=== PATIENT | female | born 1980 | race Caucasian/White ===

== ENCOUNTER 2016-07-26 01:11 | Emergency (ER) | payer OTHER ==
[~2016-07-26] VITALS: Ht 172.7 cm; Wt 72.6 kg
[~2016-07-26 01:11] MED LIST: DOXEPIN HCL10 MG ORAL; LAMICTAL150 MG ORAL; LAMICTAL25 MG ORAL
[2016-07-26] MEDS ORDERED: Oxycodone/Acetaminophen 5-325 ORAL ONE (01:45)
[2016-07-26] MEDS ORDERED: TdaP Vaccine 0.5ml Syr IM ONE (01:45)
[2016-07-26] MEDS ORDERED: Morphine Sulfate 4mg/ml Inj IM ONE (01:45)
[2016-07-26] MEDS ORDERED: Lidocaine 1% 10mg/ml/Epi 0.005mg/ml 30ml vial INJ ONE ×2 (02:00→02:02)
--- NOTE | 2016-07-26 02:32 | Emergency Room Report ---
History of Present Illness General Chief Complaint: Laceration Source: Patient Present Illness HPI 36 YO F with lacerations to palmar aspect of left hand while cutting bagel at home after drinking wine. Denies decreased sensation or reduced ROM to fingers. Unknown last tetanus update. Bleeding controlled. No known bleeding disorders. Allergies: Coded Allergies: No Known Allergies (Unverified , 03/09/15) Patient History Past Medical History: none Past Surgical History: none Pertinent Family History: none Social History: Denies: alcohol use, drug use, smoking Last Menstrual Period: 06/24/16 Now: No : 1 Para: 0 Immunizations: UTD Reviewed Nursing Documentation: PMH: Agreed, PSxH: Agreed Nursing Documentation-PMH Hx Cardiac Problems: No Hx Cancer: No Hx Gastrointestinal Problems: Yes History Of Psychiatric Problem: Yes - Bipolar Hx Neurological Problems: No Review of Systems All Other Systems: negative except mentioned in HPI Physical Exam Vital Signs Date Time Temp Pulse Resp B/P Pulse Ox O2 Delivery O2 Flow Rate FiO2 07/26/16 01:05 98.4 108 15 127/82 97 Room Air Sp02 EP Interpretation: reviewed, normal General Appearance: normal inspection, well appearing, no apparent distress, alert Head: atraumatic ENT: normal ENT inspection, hearing grossly normal, normal voice Neck: normal inspection, full range of motion, supple, no bony tend Respiratory: normal inspection, lungs clear, normal breath sounds, no respiratory distress, no retraction, no wheezing Cardiovascular #1: regular rate, rhythm, no edema Gastrointestinal: normal inspection, normal bowel sounds, non tender, soft, no guarding, no hernia Musculoskeletal: other - Left hand: 2cm linear laceration to palmar aspect of distal phalanx of left index finger.; 1cm lac to distal aspect/palmar aspect of left pinky finger. Sensation intact. Able to extend/flex at PIP and DIP. 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, motor strength/tone normal, speech normal Psychiatric: normal inspection Skin: normal inspection, normal color, no rash Procedures Laceration/Wound Repair Laceration/Wound Repair : Consent: Verbal Wound Location: upper extremity Wound's Depth, Shape: superficial Wound Explored: clean Betadine Prep?: Yes Anesthesia: Lidocaine w/ Epi Wound Debrided: minimal Wound Repaired With: sutures Suture Size/Type: 5:0 Number of Sutures: 8 Layer Closure?: No Sterile Dressing Applied?: Yes Splint Applied?: No Sling Applied?: No Patient Tolerated: Well Complications: None Progress 3 sutures to distal palmar phalanx of left pinky finger 5 sutures to distal palmar phalanx of left index finger Medical Decision Making Diagnostic Impression: Primary Impression: Laceration ER Course Multipel lacerations to left hand s/p primary repair in ED . VSS. Afebrile. Unlikely tendon involvement given intact ROM. Tetanus updated. Advised return to ER in 7-10 days for suture removal DC home with lac repair info Last Vital Signs Date Time Temp Pulse Resp B/P Pulse Ox O2 Delivery O2 Flow Rate FiO2 07/26/16 01:05 98.4 108 15 127/82 97 Room Air Status: improved Disposition: HOME, SELF-CARE Referrals: NON PHYSICIAN (PCP) MICHELL MURRY M.D. Jul 26, 2016 02:32
[2016-07-26] MEDS ORDERED: Bacitracin Oint UD TOPIC ONE (02:40)
[2016-07-26] MEDS ORDERED: Polysporin Oint 30gm TOPIC SCH (02:45)
[2016-07-26 03:00] VITALS: BP 111/76
[2016-07-26] MEDS ORDERED: CEPHALEXIN500 MG ORAL ×2 (15:16→15:53)
[2016-07-26] MEDS ORDERED: IBUPROFEN400 MG ORAL ×2 (15:16→15:53)
== END 2016-07-26 03:00 | disposition home or self-care (01) ==
LOC: EDBD 01:11 → EMR 01:23
DX: S61.211A Laceration without foreign body of left index finger without damage to nail, initial encounter (principal); S61.217A Laceration without foreign body of left little finger without damage to nail, initial encounter; W26.0XXA Contact with knife, initial encounter; Y93.G1 Activity, food preparation and clean up; Y92.009 Unspecified place in unspecified non-institutional (private) residence as the place of occurrence of the external cause; Y99.9 Unspecified external cause status; F31.9 Bipolar disorder, unspecified; Z87.19 Personal history of other diseases of the digestive system
CPT/HCPCS: 12002; 90471; 90715; 99284; J2270

== ENCOUNTER 2016-07-26 14:46 | Emergency (ER) | payer OTHER, MEDICAID ==
[~2016-07-26] VITALS: Ht 172.7 cm; Wt 72.6 kg
[2016-07-26] MEDS ORDERED: CEPHALEXIN500 MG ORAL ×2 (15:16→15:53)
[2016-07-26] MEDS ORDERED: IBUPROFEN400 MG ORAL ×2 (15:16→15:53)
[2016-07-26 15:24] VITALS: BP 120/62
[2016-07-26 15:33] VITALS: BP 120/62
[2016-07-26] MEDS ORDERED: Bacitracin Oint UD TOPIC ONE ×2 (15:37→15:45)
--- NOTE | 2016-07-26 22:48 | Emergency Room Report ---
History of Present Illness General Chief Complaint: Wound Recheck/Suture Removal Source: Patient Present Illness HPI 36-year-old female presents emergency Department with 9/10 pain, swelling and erythema and a left index finger since last night. Patient states she accidentally cut her hand wall trying to slice a bagel last night the patient states she was evaluated this morning and had sutures placed however she continues to have pain, and progressive erythema. Patient denies discharge or crusting. Patient states that one of the sutures has popped accidentally. She denies nausea, vomiting, fevers, chills. Patient states mild numbness and tingling to the distal tip of the index finger. Patient states the fourth and fifth shelli were also superficially lacerated however they did not require suturing and did not have symptoms at this time. Denies gross loss of sensation or gross motor movements of the extremities, incontinence of bowel or bladder. Denies CP, Palpitations, LOC, AMS, dizziness, Changes in Vision, Sensation, paresthesias, or a sudden severe headache. Patient states tetanus vaccination was updated this a.m. she denies being prescribed antibiotic medication. Allergies: Coded Allergies: No Known Allergies (Unverified , 03/09/15) Patient History Past Medical History: see triage record Past Surgical History: none Pertinent Family History: none Last Menstrual Period: 07/04/16 Now: No Immunizations: UTD Reviewed Nursing Documentation: PMH: Agreed, PSxH: Agreed Nursing Documentation-PMH Hx Cardiac Problems: No Hx Cancer: No Hx Gastrointestinal Problems: Yes Hx Neurological Problems: No Review of Systems All Other Systems: negative except mentioned in HPI Physical Exam Vital Signs Date Time Temp Pulse Resp B/P Pulse Ox O2 Delivery O2 Flow Rate FiO2 07/26/16 15:16 98.1 83 17 117/72 97 Room Air Sp02 EP Interpretation: reviewed, normal General Appearance: no apparent distress, alert, GCS 15, non-toxic Head: normocephalic, atraumatic Eyes: bilateral eye PERRL, bilateral eye normal inspection ENT: hearing grossly normal, normal pharynx, no angioedema, normal voice Neck: full range of motion, supple/symm/no masses Respiratory: chest non-tender, lungs clear, normal breath sounds, speaking full sentences Cardiovascular #1: regular rate, rhythm, no edema Gastrointestinal: normal bowel sounds, non tender, soft, no guarding, no rebound Rectal: deferred Genitourinary: normal inspection, no CVA tenderness Musculoskeletal: back normal, gait/station normal, normal range of motion, no calf tenderness, tender - Tenderness to the distal tip of the left index finger , swelling, erythema noted mild increased temperature palpation. Neurologic: alert, oriented x3, responsive, motor strength/tone normal, sensory intact, speech normal, other - left index finger has sensation with minimal numbness to the very distal aspect of the finger. Psychiatric: judgement/insight normal, memory normal, mood/affect normal, no suicidal/homicidal ideation Skin: normal color, no rash, warm/dry, well hydrated, laceration - previously sutured 1.5cm laceration to the distal left index finger.Tenderness to the distal tip of the left index finger, swelling, erythema noted mild increased temperature palpation. One suture hase popped. no d/c noted from laceration site. Lymphatic: no adenopathy Medical Decision Making PA Attestation Dr. macias is my supervising Physician whom patient management has been discussed with. Diagnostic Impression: Primary Impression: Laceration Additional Impression: Cellulitis Qualified Codes: L03.012 - Cellulitis of left finger ER Course Pt. presents to the ED c/o laceration to right index finger since last night with progressive erythema and swelling status post wound closure this morning. Has not been prescribed antibiotic medication. Ddx considered but are not limited to laceration, tendon injury, cellulitis, amputation Vital signs: are WNL, pt. is afebrile H&PE are most consistent with: Index finger laceration approx 1.5 cm in length with erythema and increased temperature palpation in addition to swelling consistent with possible secondary cellulitic infection, no dehiscence or discharge noted. One suture is intact only on one side of the laceration. ORDERS: none required at this time, the diagnosis is clinical ED INTERVENTIONS: -Left finger Splint applied by non destructive testing technician. Pt. remains neurovascularly intact. -Discussed with patient that he did not re- suture lacerations when stitches have popped. d/w pt. that finger splint will help to minimze more from popping. d/w pt. that will place on oral abx and to follow up with pcp, return to ED if d /c noted from laceration site. DISCHARGE: At this time pt. is stable for d/c to home. Will provide printed patient care instructions, and any necessary prescriptions. Care plan and follow up instructions have been discussed with the patient prior to discharge. 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 Return to Full Activity: Aug 06, 2016 Patient Instructions: Laceration Care, Adult Additional Instructions: Take medications as directed. Follow up with Primary care doctor in 3-5 days Return sooner to ED if new symptoms occur, or current symptoms become worse. Susan Ren Jul 26, 2016 22:48
== END 2016-07-26 15:33 | disposition home or self-care (01) ==
LOC: EMR 15:33
DX: L03.012 Cellulitis of left finger (principal); Z51.89 Encounter for other specified aftercare
CPT/HCPCS: 99284

== ENCOUNTER 2016-07-27 12:20 | Emergency (ER) | payer OTHER, MEDICAID ==
[~2016-07-27] VITALS: Ht 172.7 cm; Wt 72.6 kg
[~2016-07-27 12:20] MED LIST changes: +CEPHALEXIN500 MG ORAL; +IBUPROFEN400 MG ORAL
--- NOTE | 2016-07-27 13:06 | Emergency Room Report ---
History of Present Illness General Chief Complaint: Wound Recheck/Suture Removal Source: Patient Present Illness HPI The patient is a 36-year-old female presenting for wound recheck of the left hand. The patient states that she sustained a laceration to the left hand 2 days prior and was seen in this emergency Department and had sutures placed. The patient states that she has noticed that at least 2 sutures have fallen out and now she is unable to feel any sensation of the left second digit. The patient was placed on antibiotics and was placed in a splint. The patient describes the current pain as a 5/10 dull ache it does not radiate from the fingers. Allergies: Coded Allergies: No Known Allergies (Unverified , 03/09/15) Patient History Past Medical History: see triage record Pertinent Family History: none Last Menstrual Period: 3 weeks Now: No Reviewed Nursing Documentation: PMH: Agreed, PSxH: Agreed Nursing Documentation-PMH Past Medical History: No History, Except For Hx Cardiac Problems: No Hx Cancer: No Hx Gastrointestinal Problems: Yes Hx Neurological Problems: No Review of Systems All Other Systems: negative except mentioned in HPI Physical Exam Vital Signs Date Time Temp Pulse Resp B/P Pulse Ox O2 Delivery O2 Flow Rate FiO2 07/27/16 12:39 98.1 81 18 128/84 98 Room Air Sp02 EP Interpretation: reviewed, normal General Appearance: no apparent distress, alert, GCS 15, non-toxic Head: normocephalic, atraumatic Eyes: bilateral eye PERRL, bilateral eye normal inspection ENT: hearing grossly normal, normal pharynx, no angioedema, normal voice Neck: full range of motion, supple/symm/no masses Musculoskeletal: back normal, gait/station normal, normal range of motion, tender - TTP over lacerations Neurologic: alert, oriented x3, responsive, motor strength/tone normal, sensory intact, speech normal, sensory deficit - distal end of L 2nd digit Psychiatric: judgement/insight normal, memory normal, mood/affect normal, no suicidal/homicidal ideation Skin: well hydrated, normal turgor, laceration - three lacerations over the L palmar surface of the 5th, 4th, and 2nd digits Procedures Splinting Splinting #1: Consent: Verbal Location: L 2nd finger Pre-Made Type: metal Splint: finger Pre-Proc Neuro Vasc Exam: normal Post-Proc Neuro Vasc Exam: normal Patient Tolerated: Well Complications: None Splinting #2: Consent: Verbal Location: L 4th digit Pre-Made Type: metal Pre-Proc Neuro Vasc Exam: normal Post-Proc Neuro Vasc Exam: normal Patient Tolerated: Well Complications: None Medical Decision Making PA Attestation Dr. Yousif is my supervising physician. Patient management was discussed with my supervising physician Diagnostic Impression: Primary Impression: Laceration ER Course The patient is a 36-year-old female presenting for wound recheck of the left hand. Differential diagnosis considered: Wound infection, nonhealing wound, cellulitis , abscess PE: vitals WNL. NAD. three lacerations over the L palmar surface of the 5th, 4th, and 2nd digits. The lacerations are well approximated. No bleeding. No edema. No surrounding erythema. No DC. There is decreased sensation to touch over the distal end of the left second digit. Cap refill less than 2 seconds The patient will continue taking the antibiotics as prescribed. The patient is given time off of work and will followup with primary care physician for wound check and suture removal. ER precautions are given Last Vital Signs Date Time Temp Pulse Resp B/P Pulse Ox O2 Delivery O2 Flow Rate FiO2 07/27/16 12:39 98.1 81 18 128/84 98 Room Air Status: improved Disposition: HOME, SELF-CARE Condition: Improved Referrals: NOT CHOSEN KALINA/,REFERRING (PCP) TONY YAP Jul 27, 2016 13:06
[2016-07-27 13:23] VITALS: BP 125/84
[2016-07-27] MEDS ORDERED: Bacitracin Oint UD TOPIC ONE (13:30)
[2016-07-27 13:36] VITALS: BP 125/84
== END 2016-07-27 13:50 | disposition home or self-care (01) ==
LOC: EMR 12:45
DX: S61.211D Laceration without foreign body of left index finger without damage to nail, subsequent encounter (principal); S61.412D Laceration without foreign body of left hand, subsequent encounter
CPT/HCPCS: 99282

== ENCOUNTER 2016-07-27 23:52 | Emergency (ER) | payer OTHER, MEDICAID ==
[~2016-07-27] VITALS: Ht 172.7 cm; Wt 72.6 kg
--- NOTE | 2016-07-28 00:19 | Emergency Room Report ---
History of Present Illness General Chief Complaint: Pain Source: Patient Present Illness HPI Is a 36-year-old female who is right-hand dominant. She presents with chief complaint of left hand pain. She sustained a laceration to her left index fourth and fifth finger few days ago while cutting a bagel. It was sutured. She said she had to work today and now her index finger throbbing and swollen. Also has numbness. She wanted to make sure this was she came in. No other complaint. She currently on antibiotics and ibuprofen. Allergies: Coded Allergies: No Known Allergies (Unverified , 03/09/15) Patient History Past Medical History: see triage record, old chart reviewed Past Surgical History: none Pertinent Family History: none Social History: Denies: smoking Last Menstrual Period: 07/05/16 Now: No : 0 Para: 0 Immunizations: UTD Reviewed Nursing Documentation: PMH: Agreed, PSxH: Agreed Nursing Documentation-PMH Past Medical History: No Stated History Hx Cardiac Problems: No Hx Cancer: No Hx Gastrointestinal Problems: Yes Hx Neurological Problems: No Review of Systems Eye: Denies: blurred vision, eye pain ENT: Denies: ear pain, nose congestion, throat swelling Respiratory: Denies: cough, shortness of breath Cardiovascular: Denies: chest pain, palpitations Gastrointestinal: Denies: abdominal pain, diarrhea, nausea, vomiting Musculoskeletal: Denies: back pain, joint pain Skin: Denies: rash Neurological: Denies: headache, numbness Endocrine: Denies: increased thirst, increased urine Hematologic/Lymphatic: Denies: easy bruising All Other Systems: negative except mentioned in HPI Physical Exam Vital Signs Date Time Temp Pulse Resp B/P Pulse Ox O2 Delivery O2 Flow Rate FiO2 07/27/16 23:58 79 14 116/71 95 Room Air vitals normal Sp02 EP Interpretation: reviewed, normal General Appearance: well appearing, no apparent distress, alert Head: normocephalic, atraumatic Eyes: bilateral eye EOMI, bilateral eye PERRL ENT: hearing grossly normal, normal pharynx Neck: full range of motion, supple, no meningismus Respiratory: chest non-tender, lungs clear, normal breath sounds Cardiovascular #1: regular rate, rhythm, no murmur Gastrointestinal: normal bowel sounds, non tender, no mass, no organomegaly, no bruit, non-distended Musculoskeletal: back normal, gait/station normal, normal range of motion, other - Left hand: Left index finger with edema to the distal joint. To his suture came out. Wound looks clean. No evidence of infection. Full range of motion. Neurologic: alert, oriented x3 Psychiatric: mood/affect normal Skin: warm/dry Medical Decision Making Diagnostic Impression: Primary Impression: Encounter for wound re-check ER Course Patient here for wound check. Her paresthesias probably secondary to edema. No evidence of infection. We'll continue with antibiotics. We'll splint the finger for comfort. The or for her to plastic surgeon/hand surgeon. Last Vital Signs Date Time Temp Pulse Resp B/P Pulse Ox O2 Delivery O2 Flow Rate FiO2 07/27/16 23:58 79 14 116/71 95 Room Air Status: improved Disposition: HOME, SELF-CARE Condition: Stable Referrals: NOT CHOSEN [facility]/,REFERRING (PCP) Additional Instructions: Followup with your Dr. in 2-3 days. Followup with hand surgeon. Return if symptom worsen. SHAY ENRIQUE M.D. Jul 28, 2016 00:19
[2016-07-28 00:31] VITALS: BP 115/73
[2016-07-28 00:35] VITALS: BP 115/73
== END 2016-07-28 00:35 | disposition home or self-care (01) ==
LOC: EMR 07-28 00:15
DX: S61.412D Laceration without foreign body of left hand, subsequent encounter (principal)
CPT/HCPCS: 99283